=== PATIENT | female | born 1975 ===

== ENCOUNTER 2018-06-19 13:28 | Emergency (ER) | payer OTHER ==
[2018-06-19] MEDS ORDERED: Sodium Chloride 0.9% 1,000 ML IV STA (14:26)
--- NOTE | 2018-06-19 14:27 | ED PDOC ---
HPI: Abdomen Time Seen by Provider: 06/19/18 13:42 Chief Complaint (Nursing): Abdominal Pain Chief Complaint (Provider): Abdominal pain History Per: Patient Additional Complaint(s): 43 yo female no PMH, presents to ED C/O pelvic pain radiating to lower back x 6 days. Denies N & V, denies diarrhea/or constipation. denies painful urination, notes increased frequency. No vaginal bleeding or discharge. + tactile fever today Past Medical History Reviewed: Nursing Documentation, Vital Signs Vital Signs: Last Vital Signs Temp 98 F 06/19/18 17:05 Pulse 82 06/19/18 17:05 Resp 20 06/19/18 17:05 BP 110/67 06/19/18 17:05 Pulse Ox 98 06/19/18 17:05 - Medical History PMH: No Chronic Diseases - Family History Family History: States: No Known Family Hx - Living Arrangements Living Arrangements: With Family - Social History Current smoker - smoking cessation education provided: No Alcohol: Social Drugs: Denies - Home Medications Home Medications: Ambulatory Orders Medication Instructions Recorded Ibuprofen [Motrin] 600 mg PO Q6 #20 tab 06/19/18 Nitrofurantoin Macrocrystals 100 mg PO BID #10 cap 06/19/18 [Macrobid] - Allergies Allergies/Adverse Reactions: Allergies Allergy/AdvReac Type Severity Reaction Status Date / Time Penicillins Allergy RASH Verified 06/19/18 13:45 Review of Systems ROS Statement: Except As Marked, All Systems Reviewed And Found Negative Gastrointestinal: Positive for: Abdominal Pain Genitourinary Female: Positive for: Frequency Musculoskeletal: Positive for: Back Pain Physical Exam - Reviewed Nursing Documentation Reviewed: Yes Vital Signs Reviewed: Yes - Physical Exam Appears: Positive for: Well, Non-toxic, No Acute Distress Head Exam: Positive for: ATRAUMATIC, NORMAL INSPECTION, NORMOCEPHALIC Skin: Positive for: Normal Color, Warm, DRY Eye Exam: Positive for: EOMI, Normal appearance, PERRL ENT: Positive for: Normal ENT Inspection Neck: Positive for: Normal, Painless ROM Cardiovascular/Chest: Positive for: Regular Rate, Rhythm Respiratory: Positive for: CNT, Normal Breath Sounds Gastrointestinal/Abdominal: Positive for: Normal Exam, Soft. Negative for: Tenderness, Distended, Guarding Back: Positive for: Normal Inspection. Negative for: L CVA Tenderness, R CVA Tenderness Extremity: Positive for: Normal ROM Neurologic/Psych: Positive for: Alert, Oriented - Laboratory Results Result Diagrams: 06/19/18 14:40 06/19/18 14:40 - ECG O2 Sat by Pulse Oximetry: 100 Medical Decision Making Medical Decision Making: IV access established and diagnostics ordered Pt medicated with Motrin PO at home [employer], reports no pain on re-eval US IMPRESSION: Interval enlargement of left ovary with volume 46.5 cc have complex low density structure. Doppler flow is noted to the left ovary; however, please note that presence of Doppler flow does not excluded ovarian torsion. Clinical correlation is recommended. pt educated on all results and demonstrated full understanding. Pt doing well on re-eval, abdomen soft, non tender and non distended. Pt educated on signs and symptoms of ovarian torsion and demonstrated full understanding. Clinically, Pt stable for discharge at this time. Pt advised to return to ED if at anytime condition worsens. Disposition - Clinical Impression Clinical Impression: Pelvic pain, UTI (urinary tract infection) - Patient ED Disposition Is Patient to be Admitted: No - Disposition Disposition: Routine/Home Disposition Time: 18:24 Condition: STABLE Prescriptions: Ibuprofen [Motrin] 600 mg PO Q6 #20 tab Nitrofurantoin Macrocrystals [Macrobid] 100 mg PO BID #10 cap Instructions: Urinary Tract Infection, Adult (DC), Acute Pelvic Pain Forms: [facility] (Cam[place]onian)
[2018-06-19 14:44] LABS: BASO % 0.3 % (0.0-2.0); EOS % 0.1 % (0.0-4.0); HEMOGLOBIN 12.5 g/dL (12.0-16.0); LYMPH # 0.8 K/uL (1.0-4.3); LYMPH % 10.5 % (20.0-40.0); MEAN CELL VOLUME 91.4 fl (81.0-99.0); MEAN CORPUSCULAR HEMOGLOBIN 31.4 pg (27.0-31.0); MEAN CORPUSCULAR HGB CONC 34.3 g/dL (33.0-37.0); MONO # 0.3 K/uL (0.0-0.8); MONO % 4.2 % (0.0-10.0); NEUT # 6.1 K/uL (1.8-7.0); NEUT % 84.9 % (50.0-75.0); RBC 3.98 Mil/uL (3.80-5.20); RED CELL DISTRIBUTION WIDTH 12.8 % (11.5-14.5); WHITE BLOOD COUNT 7.2 K/uL (4.8-10.8)
[2018-06-19 14:57] LABS: SQUAMOUS EPITHIAL 8 /hpf (0-5); URINE BACTERIA RARE (<OCC); URINE BILIRUBIN NEGATIVE (NEGATIVE); URINE BLOOD NEGATIVE (NEGATIVE); URINE COLOR AMBER (YELLOW); URINE GLUCOSE (UA) NEG (Normal); URINE HYALINE CAST 0-2 /hpf (0-2); URINE LEUKOCYTE ESTERASE NEG Leu/uL (Negative); URINE PROTEIN 30 mg/dL (NEGATIVE)
[2018-06-19 14:58] LABS: ALB/GLOB RATIO 1.4 (1.0-2.1); ALBUMIN 4.4 g/dL (3.5-5.0); ALT/SGPT 67 U/L (9-52); AST/SGOT 64 U/L (14-36); BLOOD UREA NITROGEN 13 mg/dl (7-17); GFR NON-AFRICAN AMERICAN > 60
[2018-06-19 14:59] LABS: URINE CLARITY SLIGHT-CLOUDY (Clear)
[2018-06-19 17:06] VITALS: RESP 20
--- NOTE | 2018-06-19 17:55 | US ---
Date of service: 06/19/2018 HISTORY: pelvic pain COMPARISON: Pelvic ultrasound dated 05/17/2008. TECHNIQUE: Grayscale, color Doppler and spectral evaluation the pelvis performed transabdominally FINDINGS: UTERUS: Measures 9.1 x 5.2 x 4.9 cm. Anteverted. Normal in size and appearance. No fibroid or other mass lesion seen. ENDOMETRIUM: Measures 7 mm in diameter. Unremarkable. CERVIX: No cervical abnormality identified. RIGHT OVARY: Measures 2.3 x 1.6 x 1.3 cm. No solid mass. Normal flow. LEFT OVARY: Enlarged, measuring 5.2 x 4.0 x 4.4 cm compatible with volume of 46.5 cc. Cyst as well as another low density structure with internal echoes. Normal flow. FREE FLUID: No significant free fluid noted. OTHER FINDINGS: None. IMPRESSION: Interval enlargement of left ovary with volume 46.5 cc have complex low density structure. Doppler flow is noted to the left ovary; however, please note that presence of Doppler flow does not excluded ovarian torsion. Clinical correlation is recommended.
[2018-06-19 18:21] VITALS: BP 126/78; PULSE 87; TEMP 97
[2018-06-19 18:22] VITALS: O2SAT 100
== END 2018-06-19 18:23 | disposition home or self-care (01) ==
LOC: H.ER 13:28
DX: N39.0 Urinary tract infection, site not specified (principal); R10.2 Pelvic and perineal pain
CPT/HCPCS: 76857; 80053; 81003; 85025; 87086; 99283; J7030